=== PATIENT | male | born 1975 | race Hispanic/Latino ===

== ENCOUNTER 2018-11-13 10:48 | Emergency (ER) | payer SELFPAY ==
[~2018-11-13] VITALS: Ht 180.3 cm; Wt 99.8 kg
[2018-11-13] MEDS ORDERED: DEXAMETHASONE SOD PHOS 10 MG/1 ML VIAL IM ONE (11:00)
[2018-11-13] MEDS ORDERED: CYCLOBENZAPRINE HCL 10 MG TAB PO ONE (11:00)
[2018-11-13] MEDS ORDERED: KETOROLAC TROMETHAMINE 60 MG/2 ML VIAL IM ONE (11:00)
[2018-11-13] MEDS ORDERED: HYDROCODONE/APAP 10MG-325MG TAB PO ONE (11:00)
--- NOTE | 2018-11-13 11:01 | NUR ---
GERSON REGAN IN TO EVAL PT DURING TRIAGE. WILL MEDICATE ORDERED. PT AWARE PENDING X-RAY AT THIS TIME.
--- NOTE | 2018-11-13 11:32 | NUR ---
Patient became light headed after IM decadron. called. Patient taken to room 10 at this time. Episode lasted approx 2 minutes. Patient states he feels better at this time.
--- NOTE | 2018-11-13 12:32 | NUR ---
PT DENIES BEING IN PAIN WHILE RESTING IN SEMI-FOWLERS IN BED, BREATHING EVEN/UNLABORED, FURTHER STATES TO HAVE PAIN 10/10 WITH MOVEMENT.
--- NOTE | 2018-11-13 12:45 | Diagnostic Imaging Report ---
Exam: Right shoulder 2 views History: Pain Comparison: None. Findings: No fracture or malalignment. Joint spaces preserved. No abnormal soft tissue calcification or soft tissue defect. Impression: No acute osseous abnormality Signed by: Dr. Alexis Pollack M.D. on 11/13/2018 12:42 PM
[2018-11-13 13:06] VITALS: BP 118/82
== END 2018-11-13 13:20 | disposition home or self-care (01) ==
LOC: ER 10:48
DX: S43.421A Sprain of right rotator cuff capsule, initial encounter (principal)
CPT/HCPCS: 73030; 99283; J1100; J1885